=== PATIENT | male | born 1960 | race Caucasian/White ===

== ENCOUNTER 2018-04-02 13:02 | Day surgery (SDC) | payer OTHER ==
[~2018-04-02 13:02] MED LIST: BUPIVACAINE HCL 0.5 % INJ/PF 30 ML SDV ONE
[2018-04-02] MEDS ORDERED: CEFAZOLIN 2 GM/D5W RTU 2 GM/50 ML RTUPB IV PRN (14:00)
[2018-04-02] MEDS ORDERED: CLINDAMYCIN 600 MG/D5W RTU 600 MG/50 ML RTUPB IV PRN (14:00)
[2018-04-02] MEDS ORDERED: FENTANYL CITRATE INJ/PF 100 MCG/2 ML AMPUL ONE (14:18)
[2018-04-02] MEDS ORDERED: PROPOFOL INJ 200 MG/20 ML VIAL IV ONE (14:19)
[2018-04-02] MEDS ORDERED: HYDROMORPHONE HCL INJ/PF 2 MG/ML AMPULE ONE (14:19)
[2018-04-02] MEDS ORDERED: DEXAMETHASONE SOD PHOSPHATE INJ 4 MG/1 ML VIAL ONE (14:19)
[2018-04-02] MEDS ORDERED: MIDAZOLAM 2 MG/2 ML INJ ONE (14:19)
[2018-04-02] MEDS ORDERED: ONDANSETRON HCL INJ/PF 4 MG/2 ML SDV ONE (14:19)
[2018-04-02] MEDS ORDERED: ACETAMINOPHEN 1,000 MG/100 ML RTUPB IV ONE (14:19)
[2018-04-02 14:32] LABS: APPEARANCE,URINE SLIGHTLY-CLOUDY; BILIRUBIN,URINE NEGATIVE (NEGATIVE); COLOR,URINE YELLOW; GLUCOSE, URINE NEGATIVE (NEGATIVE); KETONES,URINE NEGATIVE (NEGATIVE); LEUKOCYTE ESTERASE,URINE NEGATIVE (NEGATIVE); NITRITE,URINE NEGATIVE (NEGATIVE); PROTEIN,URINE NEGATIVE (NEGATIVE); URINE SPECIFIC GRAVITY 1.028; UROBILINOGEN,URINE NEGATIVE mg/dL (<2.0)
[2018-04-02 14:34] LABS: HEMATOCRIT 41.2 % (37.9-51.0); HEMOGLOBIN 14.4 g/dL (13.5-17.0); MEAN CORPUSCULAR HEMOGLOBIN 30.5 pg (27.0-33.4); MEAN CORPUSCULAR HGB CONC 34.8 g/dL (32.0-36.0); MEAN CORPUSCULAR VOLUME 87 fl (80-97); PLATELET COUNT 193 10^3/uL (150-450); RED BLOOD COUNT 4.71 10^6/uL (4.35-5.55); RED CELL DISTRIBUTION WIDTH 13.3 % (11.5-14.0); WHITE BLOOD COUNT 6.9 10^3/uL (4.0-10.5)
[2018-04-02] MEDS ORDERED: CLINDAMYCIN 600 MG/D5W RTU 600 MG/50 ML RTUPB IV ONE (14:50)
[2018-04-02 15:00] LABS: ANION GAP 6 (5-19); BLOOD UREA NITROGEN 24 mg/dL (7-20); CALCIUM 9.2 mg/dL (8.4-10.2); CARBON DIOXIDE 25 mmol/L (22-30); CHLORIDE 108 mmol/L (98-107); GLUCOSE 88 mg/dL (75-110); POTASSIUM 4.4 mmol/L (3.6-5.0); SODIUM 139.1 mmol/L (137-145)
[2018-04-02] MEDS ORDERED: MORPHINE SULFATE 10 MG/ML INJ IV PRN ×2 (15:34→17:13)
[2018-04-02] MEDS ORDERED: DIPHENHYDRAMINE HCL 50 MG/ML VIAL IV PRN (15:34)
[2018-04-02] MEDS ORDERED: MEPERIDINE HCL/PF INJ 25 MG/1 ML DISP.SYRIN IV PRN (15:34)
[2018-04-02] MEDS ORDERED: PROMETHAZINE HCL INJ 25 MG/1 ML VIAL IV PRN (15:34)
[2018-04-02] MEDS ORDERED: FENTANYL CITRATE INJ/PF 100 MCG/2 ML AMPUL IV PRN ×3 (15:34)
[2018-04-02] MEDS ORDERED: RINGERS SOLUTION,LACTATED 1,000 ML IV ONE (16:00)
[2018-04-02] MEDS ORDERED: OXYCODONE-ACETAMINOPHEN 5-325 MG TABLET PO PRN (17:13)
[2018-04-02] MEDS ORDERED: ONDANSETRON HCL INJ/PF 4 MG/2 ML SDV IV PRN (17:13)
--- NOTE | 2018-04-02 17:16 | RADIOLOGY REPORT (SQ) ---
EXAM DESCRIPTION: NO CHG FLUORO; FINGER LEFT COMPLETED DATE/TIME: 04/02/2018 4:59 pm REASON FOR STUDY: ORIF LEFT THUMB S62.609A FRACTURE OF UNSP PHALANX OF UNSP FINGER, INIT FOR C S61. 002A UNSP OPEN WOUND OF LEFT THUMB W/O DAMAGE TO NAIL, I S62.522A DISP FX OF DISTAL PHALANX OF LEFT THUMB, INIT FOR C COMPARISON: None. FLUOROSCOPY TIME: 2.9 minutes 8 images saved to PACS. TECHNIQUE: Intra-operative images acquired during surgical procedure to evaluate progress. NUMBER OF IMAGES: 8 LIMITATIONS: None. FINDINGS: 2 orthopedic pins overlie 1st interphalangeal joint. IMPRESSION: IMAGE(S) OBTAINED DURING PROCEDURE. COMMENT: Quality ID 145: Final reports for procedures using fluoroscopy that document radiation exp osure indices, or exposure time and number of fluorographic images (if radiation exposure indices are not available) Please consult full operative report of the attending physician for description of the procedure. TECHNICAL DOCUMENTATION: JOB ID: [id number] [employer]- All Rights Reserved Reading location - IP/workstation name: [email or web address]
--- NOTE | 2018-04-02 17:16 | RADIOLOGY REPORT (SQ) ---
EXAM DESCRIPTION: NO CHG FLUORO; FINGER LEFT COMPLETED DATE/TIME: 04/02/2018 4:59 pm REASON FOR STUDY: ORIF LEFT THUMB S62.609A FRACTURE OF UNSP PHALANX OF UNSP FINGER, INIT FOR C S61. 002A UNSP OPEN WOUND OF LEFT THUMB W/O DAMAGE TO NAIL, I S62.522A DISP FX OF DISTAL PHALANX OF LEFT THUMB, INIT FOR C COMPARISON: None. FLUOROSCOPY TIME: 2.9 minutes 8 images saved to PACS. TECHNIQUE: Intra-operative images acquired during surgical procedure to evaluate progress. NUMBER OF IMAGES: 8 LIMITATIONS: None. FINDINGS: 2 orthopedic pins overlie 1st interphalangeal joint. IMPRESSION: IMAGE(S) OBTAINED DURING PROCEDURE. COMMENT: Quality ID 145: Final reports for procedures using fluoroscopy that document radiation exp osure indices, or exposure time and number of fluorographic images (if radiation exposure indices are not available) Please consult full operative report of the attending physician for description of the procedure. TECHNICAL DOCUMENTATION: JOB ID: [id number] [employer]- All Rights Reserved Reading location - IP/workstation name: [email or web address]
--- NOTE | 2018-04-02 17:30 | Operative Report ---
Operative Report PREOPERATIVE DIAGNOSIS: Left thumb laceration, DIP joint dislocation POSTOPERATIVE DIAGNOSIS: Left thumb laceration with open fracture distal phalanx , DIP joint dislocation radial digital nerve laceration OPERATION: Irrigation and debridement left thumb including distal phalanx. Open reduction internal fixation DIP joint fracture dislocation. 1.5 cm advancement flap ANESTHESIA: GA COMPLICATIONS: None ESTIMATED BLOOD LOSS: Minimal PROCEDURE: Indication for above procedure: 58-year-old male who presented to the [place] emergency room after sustaining a fall from a tree and the limb got caught onto his thumb. He sustained a open fracture dislocation of the thumb IP joint with contamination. He was seen at the emergency room at the area was in and with the dry dressings placed. He then was sent to [facility] for further evaluation given the severity of his injury and contamination of the original mechanism incision was made to proceed with operative intervention. Patient's risks and benefits were explained patient verbalized understanding consented for the procedure. Procedure In Detail: Patient was seen and evaluated in the preoperative holding area. The LEFT upper extremity was initialized and marked. Patient received 2g of Ancef IV for bacterial prophylaxis. Patient was taken back to the operative room where transferred to the operative table and placed under general anesthesia. Once they were adequately anesthetized a nonsterile tourniquet was placed on the upper extremity. A surgical team debriefing was performed ensuring all instrumentation was available, the surgical procedure was discussed with possible concerns reviewed. The upper extremity was prepped with betadine and draped in a sterile fashion. A timeout was done identifying correct patient, procedure and extremity everyone in attendance agree with this and verbalized no concerns. The extremity was exsanguinated the tourniquet was inflated to 250 mmHg. Wound was then copiously irrigated with normal saline any nonviable skin deep soft tissue including portion of the wilmer system was resected. There was evidence of gross contamination with foreign body including multiple fragments of dark and wood within the deep space of the wound. Exit or entry wound along the dorsum of the IP joint also demonstrated gross contamination. Distal phalanx was debrided with a curette there is no evidence of nonviable bone. The wound was copiously irrigated with normal saline. As much of the foreign body contamination was excised along with the nonviable tissue. There was 20 mm defect of the radial digital nerve and artery. But the FPL remained intact. There was significant instability of the DIP joint this was then reduced however would not remain reduced without fixation. Thus 2 x 0.045 K wires were placed transarticular across the DIP joint and the fracture of the distal phalanx. There was evidence of bone loss dorsally. The wound was then copiously irrigated with normal saline once again. The incision was extended proximally and a 1.5 cm portion of the thenar skin was advanced via rotational flap in a distal direction to provide coverage to the proximal phalanx. This was reapproximated with 4-0 chromic gut suture. A defect 5 mm x 5 mm remained along the IP joint to allow healing by secondary intention. The tourniquet was then deflated. Patient had good peripheral perfusion with normal capillary refill. 20 cc of 0.5% Marcaine without epinephrine was injected for postoperative pain control. Sponge, instrument needle counts were correct. No Intra-Op complications patient taps well stable to PACU. Post Operative Plan: Patient will follow in the office in 1 week for wound check. We will be transition to soft dressing.
--- NOTE | 2018-04-02 17:35 | Discharge Summary ---
Discharge Summary (SDC) - Discharge Final Diagnosis: Left thumb laceration Date of Surgery: 04/02/18 Discharge Date: 04/02/18 Condition: Fair Treatment or Instructions: Schedule Follow Up w/ Dr. Zane Trejo @ [facility] to be seen in 10-14 days or as scheduled [place]: [place]: [place]: Ice and elevate Keep splint clean/dry/intact. If your fingers become numb please unwrap the Tavo wrap but leave the splint in place, if the sensation does not return within 30 minutes please return to the emergency department. May begin finger range of motion attempting to make full fist. Please use ibuprofen (Motrin or Advil) 600-800 mg every 8 hours as needed for pain or fever DO NOT TAKE w/ TORADOL may use once TORADOL complete. You may also use acetaminophen (Tylenol) 1000 mg every 4-6 hours as needed for pain or fever. Please be aware that many medications contain acetaminophen, do not exceed a total of 1000 mg of acetaminophen every 6 hours. If ibuprofen and acetaminophen are not sufficient for your pain you may take the Percocet/Leonard. Please be aware that the Percocet/Leonard does contain Tylenol. Stool softener of choice when on pain medication. Prescriptions: Doxycycline Monohydrate 100 mg PO BID #20 tablet Oxycodone HCl/Acetaminophen [Percocet 5-325 mg Tablet] 1 tab PO Q6 PRN #25 tab PRN Reason: Referrals: DUGLAS DAN MD [Primary Care Provider] - Discharge Diet: As Tolerated Discharge Activity: No Lifting Over 10 Pounds, No Lifting/Push/Pulling Report the Following to Your Physician Immediately: Fever over 101 Degrees, Unusual Bleeding, Redness, Swelling, Warmth
[2018-04-02 19:11] VITALS: BP 112/75
--- NOTE | 2018-04-03 07:49 | EKG REPORT ---
SEVERITY:- NORMAL ECG - SINUS RHYTHM : Confirmed by: Yanique Rizzo MD 03-Apr-2018 07:48:32
== END 2018-04-02 19:20 | disposition home or self-care (01) ==
LOC: OROUT 13:02
PROVIDERS: ATTEND Orthopaedic Surgery
DX: S64.32XA Injury of digital nerve of left thumb, initial encounter (principal); S62.522B Displaced fracture of distal phalanx of left thumb, initial encounter for open fracture; S63.125A Dislocation of interphalangeal joint of left thumb, initial encounter; W20.8XXA Other cause of strike by thrown, projected or falling object, initial encounter; M79.645 Pain in left finger(s); E78.00 Pure hypercholesterolemia, unspecified; Z88.0 Allergy status to penicillin; Z87.891 Personal history of nicotine dependence; Z88.2 Allergy status to sulfonamides
CPT/HCPCS: 36415; 85027; 80048; 81001; 73140; 93005; 93010; 26785; 11012; C1713; J2250; J3490; J1100; J3010; J2405; J2704; J0131; 01820; J1170